=== PATIENT | male | born 1990 | race Caucasian/White ===

== ENCOUNTER 2021-12-31 04:26 | Day surgery (SDC) | payer OTHER ==
[2021-12-26 15:12] VITALS: BMI 22.3
[2021-12-31] MEDS ORDERED: PROPOFOL 20 ML ONE ×2 (09:56)
[2021-12-31] MEDS ORDERED: MIDAZOLAM HCL 2 MG/2 ML SINGLE DOSE VIAL ONE (09:56)
[2021-12-31] MEDS ORDERED: BUPIVACAINE HCL/PF 0.25% (2.5MG/ML) 10 ML VIAL ONE (10:13)
[2021-12-31] MEDS ORDERED: ceFAZolin SODIUM 1 GM VIAL ONE (10:28)
[2021-12-31] MEDS ORDERED: ONDANSETRON 4 MG/2 ML VIAL ONE (10:30)
[2021-12-31] MEDS ORDERED: DEXAMETHASONE SOD PHOSPHATE 4 MG/1 ML VIAL ONE (10:30)
[2021-12-31] MEDS ORDERED: ceFAZolin SODIUM 1 GM VIAL IVPB ONE (10:31)
[2021-12-31] MEDS ORDERED: LIDOCAINE HCL 1%, 10 MG/ML (20ML VIAL) NR ONE ×2 (10:38)
[2021-12-31] MEDS ORDERED: BUPIVACAINE HCL/PF 0.25% (2.5MG/ML) 10 ML VIAL IJ ONE ×2 (10:38)
[2021-12-31] MEDS ORDERED: KETOROLAC TROMETHAMINE 30 MG/1 ML VIAL ONE (11:20)
[2021-12-31] MEDS ORDERED: ONDANSETRON 4 MG/2 ML VIAL IVPUSH PRN (11:46)
[2021-12-31] MEDS ORDERED: oxyCODONE HCL 5 MG TABLET PO PRN (11:46)
[2021-12-31] MEDS ORDERED: LACTATED RINGERS SOLUTION 1,000 ML IV SCH (12:00)
[2021-12-31] MEDS ORDERED: FENTANYL CITRATE/PF 50 MCG/ML VIAL ONE (12:44)
[2021-12-31] MEDS ORDERED: oxyCODONE HCL 5 MG TABLET ONE (15:26)
[2021-12-31 17:31] VITALS: BP 113/62; PULSE 52; TEMP 97.8
== END 2021-12-31 17:10 | disposition home or self-care (01) ==
LOC: JASU-SURG 04:26
PROVIDERS: ATTEND Surgery
PROC: 0YU50JZ Supplement Right Inguinal Region with Synthetic Substitute, Open Approach (ICD-10-PCS; principal; 2021-12-31 10:00)
DX: K40.90 Unilateral inguinal hernia, without obstruction or gangrene, not specified as recurrent (principal)
CPT/HCPCS: 94760